=== PATIENT | female | born 1985 | race Caucasian/White ===

== ENCOUNTER 2016-08-13 14:30 | Day surgery (SDC) | payer OTHER | END 2016-08-13 23:59 | disposition home or self-care (01) | LOC: SDC 14:30 | PROVIDERS: Anesthesiology | PROC: 3E0S3GC Introduction of Other Therapeutic Substance into Epidural Space, Percutaneous Approach (ICD-10-PCS; principal; 2016-08-13 14:45) | DX: Z53.9 Procedure and treatment not carried out, unspecified reason (principal); G97.1 Other reaction to spinal and lumbar puncture | CPT/HCPCS: J2250; J3010 ==